=== PATIENT | female | born 1945 | race Caucasian/White ===

== ENCOUNTER 2016-12-23 09:01 | Day surgery (SDC) | payer OTHER ==
[2016-12-23] MEDS ORDERED: NS 500 ML IV 500 ML IV ONE (09:30)
[2016-12-23] MEDS ORDERED: TETRACAINE 0.5% OPHTH 1 DOSE AFFEYE ONE ×4 (09:45→11:46)
[2016-12-23] MEDS ORDERED: VIGAMOX 0.5% OPHTH 1 DOSE AFFEYE ONE ×5 (09:50→11:58)
[2016-12-23] MEDS ORDERED: PROLENSA OPHTH 1 DOSE AFFEYE ONE (10:01)
[2016-12-23] MEDS ORDERED: ALPHAGAN-P OPHTH 1 DOSE AFFEYE ONE (10:02)
[2016-12-23] MEDS ORDERED: CYCLOGYL 1% OPHTH 1 DOSE OP ONE ×3 (10:03→10:05)
[2016-12-23] MEDS ORDERED: MYDRIACIL OPHTH 1 DOSE AFFEYE ONE ×3 (10:03→10:05)
[2016-12-23] MEDS ORDERED: AK-DILATE 2.5% OPHTH 1 DOSE OP ONE ×3 (10:03→10:05)
[2016-12-23] MEDS ORDERED: BETADINE OPHTH SOLN 5% EACHEYE ONE (10:36)
[2016-12-23] MEDS ORDERED: BSS OPHTH (PLAIN) 500 ML with VANCOMYCIN HCL 500 MG VIAL 25 MG, ADRENALINE CHL INJ 1 MG IR ONE ×6 (11:42)
[2016-12-23] MEDS ORDERED: DUOVISC IO ONE ×2 (11:42→11:46)
[2016-12-23] MEDS ORDERED: XYLOCAINE-MPF 1% IJ ONE ×2 (11:42→11:46)
[2016-12-23] MEDS ORDERED: ADRENALINE CHL INJ IJ ONE ×2 (11:42→11:46)
[2016-12-23] MEDS ORDERED: DIPRIVAN VIAL ONE (13:46)
[2016-12-23 15:53] VITALS: BP 137/73
== END 2016-12-23 12:25 | disposition home or self-care (01) ==
LOC: SURG1 09:01
PROVIDERS: ATTEND Ophthalmology
PROC: 08DK3ZZ Extraction of Left Lens, Percutaneous Approach (ICD-10-PCS; principal; 2016-12-23 16:30)
PROC: 08RK3JZ Replacement of Left Lens with Synthetic Substitute, Percutaneous Approach (ICD-10-PCS; principal; 2016-12-23 16:30)
DX: H25.12 Age-related nuclear cataract, left eye (principal); H25.012 Cortical age-related cataract, left eye; H25.042 Posterior subcapsular polar age-related cataract, left eye
CPT/HCPCS: 99100; A4217; J0170; J3370; J3490

== ENCOUNTER 2017-01-13 06:41 | Day surgery (SDC) | payer OTHER ==
[2017-01-13] MEDS ORDERED: NS 500 ML IV 500 ML IV ONE (07:21)
[2017-01-13] MEDS ORDERED: TETRACAINE 0.5% OPHTH 1 DOSE AFFEYE ONE ×5 (07:35→09:47)
[2017-01-13] MEDS ORDERED: VIGAMOX 0.5% OPHTH 1 DOSE AFFEYE ONE ×4 (07:36→08:49)
[2017-01-13] MEDS ORDERED: PROLENSA OPHTH 1 DOSE AFFEYE ONE (07:47)
[2017-01-13] MEDS ORDERED: ALPHAGAN-P OPHTH 1 DOSE AFFEYE ONE (07:48)
[2017-01-13] MEDS ORDERED: MYDRIACIL OPHTH 1 DOSE AFFEYE ONE ×4 (07:49→07:52)
[2017-01-13] MEDS ORDERED: CYCLOGYL 1% OPHTH 1 DOSE OP ONE ×4 (07:49→07:52)
[2017-01-13] MEDS ORDERED: AK-DILATE 2.5% OPHTH 1 DOSE OP ONE ×4 (07:49→07:52)
[2017-01-13] MEDS ORDERED: BETADINE OPHTH SOLN 5% EACHEYE ONE ×2 (08:47→09:25)
[2017-01-13] MEDS ORDERED: XYLOCAINE-MPF 1% IJ ONE ×2 (08:49→09:47)
[2017-01-13] MEDS ORDERED: ADRENALINE CHL INJ IJ ONE ×2 (08:49→09:47)
[2017-01-13] MEDS ORDERED: DUOVISC IO ONE ×2 (08:49→09:47)
[2017-01-13] MEDS ORDERED: BSS OPHTH (PLAIN) 500 ML with VANCOMYCIN HCL 500 MG VIAL 25 MG, ADRENALINE CHL INJ 1 MG IR ONE ×6 (08:50)
[2017-01-13 10:21] VITALS: BP 147/69
== END 2017-01-13 10:25 | disposition home or self-care (01) ==
LOC: SURG1 06:41
PROVIDERS: ATTEND Ophthalmology
PROC: 08RJ3JZ Replacement of Right Lens with Synthetic Substitute, Percutaneous Approach (ICD-10-PCS; principal; 2017-01-13 09:45)
PROC: 08DJ3ZZ Extraction of Right Lens, Percutaneous Approach (ICD-10-PCS; principal; 2017-01-13 09:45)
DX: H25.11 Age-related nuclear cataract, right eye (principal); H25.011 Cortical age-related cataract, right eye
CPT/HCPCS: 99100; A4217; J0170; J3370